=== PATIENT | male | born 1945 | race Caucasian/White ===

== ENCOUNTER 2017-12-18 00:04 | Inpatient (IN) | payer MEDICARE, BC ==
[2017-12-18] MEDS: SOD CHLORIDE 0.9% 1,000 ML IV ×2 (00:23→13:30)
[2017-12-18 00:58] LABS: ADD MAN DIFF? NO
[2017-12-18 00:59] LABS: BASOPHIL # 0.1 10^3/ul (0.0-0.1); BASOPHILS % 0.3 % (0.0-2.0); EOSINOPHILS % 0.2 % (0.0-7.0); HEMATOCRIT 45.3 % (42.0-52.0); HEMOGLOBIN 15.1 g/dl (14.0-18.0); LYMPHOCYTES # 0.7 10^3/ul (0.8-2.9); LYMPHOCYTES % 3.8 % (15.0-51.0); MEAN CORPUSCULAR HEMOGLOBIN 31.4 pg (29.0-33.0); MEAN CORPUSCULAR HGB CONC 33.3 g/dl (32.0-37.0); MEAN CORPUSCULAR VOLUME 94.2 fl (82.0-101.0); MEAN PLATELET VOLUME 9.9 fl (7.4-10.4); MONOCYTE # 0.8 10^3/ul (0.3-0.9); MONOCYTES % 4.3 % (0.0-11.0); NEUTROPHIL # 16.5 10^3/ul (1.6-7.5); NEUTROPHILS % 90.9 % (39.0-77.0); PLATELET COUNT 260 10^3/UL (140-415); RED BLOOD COUNT 4.81 10^6/ul (4.70-6.10); RED CELL DISTRIBUTION WIDTH 12.9 % (11.5-14.5)
[2017-12-18 00:59] LABS: WHITE BLOOD COUNT 18.2 10^3/ul (4.8-10.8)
[2017-12-18 01:19] LABS: INR 0.95; PROTIME 12.8 Sec (11.9-14.9)
[2017-12-18 01:20] LABS: ALANINE AMINOTRANSFERASE 43 IU/L (13-69); ALBUMIN 4.7 g/dl (3.3-4.9); ALKALINE PHOSPHATASE 88 IU/L (42-121); ANION GAP 21 (8-16); ASPARTATE AMINO TRANSFERASE 37 IU/L (15-46); BILIRUBIN,INDIRECT 0.4 mg/dl (0-1.1); BILIRUBIN,TOTAL 0.4 mg/dl (0.2-1.3); BLOOD UREA NITROGEN 35 mg/dl (7-20); CALCIUM 9.9 mg/dl (8.4-10.2); CARBON DIOXIDE 25 mmol/L (21-31); CHLORIDE 96 mmol/L (97-110); CREATININE 1.25 mg/dl (0.61-1.24); GLUCOSE 145 mg/dl (70-220); PARTIAL THROMBOPLASTIN TIME 33.2 Sec (25.0-35.0); POTASSIUM 4.7 mmol/L (3.5-5.1); SODIUM 137 mmol/L (135-144); TOTAL PROTEIN 8.3 g/dl (6.1-8.1)
[2017-12-18] MEDS: ONDANSETRON 4 MG INJ IV (01:24)
[2017-12-18] MEDS: FAMOTIDINE 20 MG INJ IV (01:24)
[2017-12-18] MEDS: LEVETIRACETAM 500 MG (PMX) 100 ML IVPB (01:24)
[2017-12-18 01:31] LABS: TROPONIN-I < 0.012 ng/ml (0.000-0.120)
[2017-12-18] MEDS: PANTOPRAZOLE 40 MG INJ IV ×3 (01:57→18:27)
[2017-12-18] MEDS ORDERED: ONDANSETRON 4 MG INJ IV (03:00)
[2017-12-18] MEDS ORDERED: ACETAMINOPHEN 325 MG TAB PO (03:00)
[2017-12-18] MEDS ORDERED: GLUCOSE GEL 15 GRAM TUBE BUCCAL (06:30)
[2017-12-18] MEDS ORDERED: POLYETHYLENE GLYCOL 17 GM PACKET PO (06:30)
[2017-12-18] MEDS ORDERED: GLUCAGON 1 MG INJ IM (06:30)
[2017-12-18] MEDS ORDERED: GLUCOSE GEL 15 GRAM TUBE PO ×2 (06:30)
[2017-12-18] MEDS ORDERED: DEXTROSE 50% 50 ML SYRINGE IV ×2 (06:30)
[2017-12-18] MEDS: CIPROFLOXACIN 200 MG/D5W IVPB 100 ML IVPB (06:37)
[2017-12-18 07:26] LABS: HEMATOCRIT 37.6 % (42.0-52.0); HEMOGLOBIN 12.7 g/dl (14.0-18.0)
[2017-12-18] MEDS: INSULIN ASPART [NOVOLOG] 3 ML PEN SC ×4 (07:54→21:00)
[2017-12-18] MEDS: metFORMIN 500 MG TAB PO (07:54)
[2017-12-18] MEDS: LACTULOSE 30ML CUP PO (08:52)
[2017-12-18] MEDS: LINAGLIPTIN 5 MG TABLET PO (08:52)
[2017-12-18] MEDS: LEVETIRACETAM 500 MG TAB PO ×2 (08:53→21:38)
[2017-12-18] MEDS: LAMOTRIGINE 100 MG TAB PO ×2 (08:53→21:38)
[2017-12-18] MEDS: DILTIAZEM (CD) 240 MG CAP PO (08:53)
[2017-12-18] MEDS: LISINOPRIL 10 MG TAB PO (08:54)
[2017-12-18] MEDS ORDERED: NON-FORMULARY/PATIENT OWN MED (Sitagliptin* (Januvia*) 100 MG) PO (09:00)
[2017-12-18 14:09] LABS: HEMATOCRIT 34.9 % (42.0-52.0); HEMOGLOBIN 11.6 g/dl (14.0-18.0)
[2017-12-19] MEDS: ACCU-CHEK XX (02:00)
[2017-12-19] MEDS: PANTOPRAZOLE 40 MG INJ IV ×2 (05:27→17:46)
[2017-12-19] MEDS: SOD CHLORIDE 0.9% 1,000 ML IV ×3 (05:30→21:18)
[2017-12-19 06:52] LABS: ADD MAN DIFF? NO
[2017-12-19 06:56] LABS: ABNORMAL IP MESSAGE 1; BASOPHIL # 0.1 10^3/ul (0.0-0.1); BASOPHILS % 0.4 % (0.0-2.0); EOSINOPHILS # 0.2 10^3/ul (0.0-0.5); EOSINOPHILS % 1.7 % (0.0-7.0); HEMATOCRIT 35.8 % (42.0-52.0); HEMOGLOBIN 12.3 g/dl (14.0-18.0); LYMPHOCYTES # 0.5 10^3/ul (0.8-2.9); LYMPHOCYTES % 4.6 % (15.0-51.0); MEAN CORPUSCULAR HEMOGLOBIN 31.5 pg (29.0-33.0); MEAN CORPUSCULAR HGB CONC 34.4 g/dl (32.0-37.0); MEAN CORPUSCULAR VOLUME 91.8 fl (82.0-101.0); MEAN PLATELET VOLUME 10.5 fl (7.4-10.4); MONOCYTE # 0.8 10^3/ul (0.3-0.9); MONOCYTES % 6.7 % (0.0-11.0); NEUTROPHIL # 9.7 10^3/ul (1.6-7.5); NEUTROPHILS % 86.2 % (39.0-77.0); PLATELET COUNT 192 10^3/UL (140-415); POSITIVE DIFF @See below; RED CELL DISTRIBUTION WIDTH 13.1 % (11.5-14.5)
[2017-12-19 06:56] LABS: WHITE BLOOD COUNT 11.2 10^3/ul (4.8-10.8)
[2017-12-19 07:22] LABS: ANION GAP 13 (8-16); BLOOD UREA NITROGEN 20 mg/dl (7-20); CALCIUM 8.7 mg/dl (8.4-10.2); CARBON DIOXIDE 24 mmol/L (21-31); CHLORIDE 102 mmol/L (97-110); CREATININE 0.95 mg/dl (0.61-1.24); GLUCOSE 103 mg/dl (70-220); POTASSIUM 4.1 mmol/L (3.5-5.1); SODIUM 135 mmol/L (135-144)
[2017-12-19] MEDS: INSULIN ASPART [NOVOLOG] 3 ML PEN SC ×4 (08:00→21:00)
[2017-12-19] MEDS: LACTULOSE 30ML CUP PO (08:43)
[2017-12-19] MEDS: DILTIAZEM (CD) 240 MG CAP PO (08:44)
[2017-12-19] MEDS: LEVETIRACETAM 500 MG TAB PO ×2 (08:44→21:19)
[2017-12-19] MEDS: LAMOTRIGINE 100 MG TAB PO ×2 (08:44→21:19)
[2017-12-19] MEDS: LISINOPRIL 10 MG TAB PO (08:45)
[2017-12-19] MEDS: LINAGLIPTIN 5 MG TABLET PO (08:45)
[2017-12-19] MEDS: metFORMIN 500 MG TAB PO (08:46)
[2017-12-19] MEDS ORDERED: ONDANSETRON 4 MG INJ IV (10:00)
[2017-12-19] MEDS: CIPROFLOXACIN 500 MG TAB PO (18:14)
[2017-12-19] MEDS: NITROFURANTOIN (SR) 100 MG CAP PO (21:19)
[2017-12-20] MEDS: ACCU-CHEK XX (02:00)
[2017-12-20] MEDS: CIPROFLOXACIN 500 MG TAB PO ×2 (05:59→18:28)
[2017-12-20] MEDS: PANTOPRAZOLE 40 MG INJ IV ×2 (05:59→18:28)
[2017-12-20 06:16] LABS: ADD MAN DIFF? NO
[2017-12-20 06:28] LABS: BASOPHILS % 0.5 % (0.0-2.0); EOSINOPHILS # 0.3 10^3/ul (0.0-0.5); EOSINOPHILS % 3.9 % (0.0-7.0); HEMATOCRIT 35.8 % (42.0-52.0); HEMOGLOBIN 12.3 g/dl (14.0-18.0); LYMPHOCYTES # 0.7 10^3/ul (0.8-2.9); LYMPHOCYTES % 7.6 % (15.0-51.0); MEAN CORPUSCULAR HEMOGLOBIN 31.6 pg (29.0-33.0); MEAN CORPUSCULAR HGB CONC 34.4 g/dl (32.0-37.0); MEAN PLATELET VOLUME 10.5 fl (7.4-10.4); MONOCYTE # 0.9 10^3/ul (0.3-0.9); MONOCYTES % 10.6 % (0.0-11.0); NEUTROPHIL # 6.6 10^3/ul (1.6-7.5); NEUTROPHILS % 76.9 % (39.0-77.0); PLATELET COUNT 189 10^3/UL (140-415); RED BLOOD COUNT 3.89 10^6/ul (4.70-6.10); RED CELL DISTRIBUTION WIDTH 12.9 % (11.5-14.5)
[2017-12-20 06:28] LABS: WHITE BLOOD COUNT 8.5 10^3/ul (4.8-10.8)
[2017-12-20 06:55] LABS: ANION GAP 14 (8-16); BLOOD UREA NITROGEN 13 mg/dl (7-20); CALCIUM 9.1 mg/dl (8.4-10.2); CARBON DIOXIDE 25 mmol/L (21-31); CHLORIDE 100 mmol/L (97-110); CREATININE 0.84 mg/dl (0.61-1.24); GLUCOSE 86 mg/dl (70-220); POTASSIUM 3.9 mmol/L (3.5-5.1); SODIUM 135 mmol/L (135-144)
[2017-12-20] MEDS: INSULIN ASPART [NOVOLOG] 3 ML PEN SC ×4 (08:00→21:00)
[2017-12-20] MEDS: DILTIAZEM (CD) 240 MG CAP PO (08:08)
[2017-12-20] MEDS: LEVETIRACETAM 500 MG TAB PO ×2 (08:08→21:14)
[2017-12-20] MEDS: metFORMIN 500 MG TAB PO (08:08)
[2017-12-20] MEDS: NITROFURANTOIN (SR) 100 MG CAP PO ×2 (08:08→21:15)
[2017-12-20] MEDS: LISINOPRIL 10 MG TAB PO (08:09)
[2017-12-20] MEDS: LACTULOSE 30ML CUP PO (08:09)
[2017-12-20] MEDS: LINAGLIPTIN 5 MG TABLET PO (08:09)
[2017-12-20] MEDS: LAMOTRIGINE 100 MG TAB PO ×2 (08:09→21:14)
[2017-12-20] MEDS: SOD CHLORIDE 0.9% 1,000 ML IV ×2 (10:09→23:55)
[2017-12-21] MEDS: ACCU-CHEK XX (01:25)
[2017-12-21] MEDS: PANTOPRAZOLE 40 MG INJ IV (05:22)
[2017-12-21] MEDS: CIPROFLOXACIN 500 MG TAB PO (05:42)
[2017-12-21 06:05] LABS: ADD MAN DIFF? NO
[2017-12-21 06:11] LABS: BASOPHILS % 0.5 % (0.0-2.0); EOSINOPHILS # 0.3 10^3/ul (0.0-0.5); EOSINOPHILS % 3.6 % (0.0-7.0); HEMATOCRIT 34.7 % (42.0-52.0); HEMOGLOBIN 12.2 g/dl (14.0-18.0); LYMPHOCYTES # 0.7 10^3/ul (0.8-2.9); LYMPHOCYTES % 7.4 % (15.0-51.0); MEAN CORPUSCULAR HEMOGLOBIN 31.5 pg (29.0-33.0); MEAN CORPUSCULAR HGB CONC 35.2 g/dl (32.0-37.0); MEAN CORPUSCULAR VOLUME 89.7 fl (82.0-101.0); MEAN PLATELET VOLUME 10.3 fl (7.4-10.4); NEUTROPHIL # 6.8 10^3/ul (1.6-7.5); NEUTROPHILS % 77.2 % (39.0-77.0); PLATELET COUNT 209 10^3/UL (140-415); RED BLOOD COUNT 3.87 10^6/ul (4.70-6.10); RED CELL DISTRIBUTION WIDTH 12.9 % (11.5-14.5)
[2017-12-21 06:11] LABS: WHITE BLOOD COUNT 8.8 10^3/ul (4.8-10.8)
[2017-12-21 06:40] LABS: ANION GAP 12 (8-16); BLOOD UREA NITROGEN 15 mg/dl (7-20); CALCIUM 8.8 mg/dl (8.4-10.2); CARBON DIOXIDE 23 mmol/L (21-31); CHLORIDE 103 mmol/L (97-110); CREATININE 0.85 mg/dl (0.61-1.24); GLUCOSE 98 mg/dl (70-220); POTASSIUM 3.9 mmol/L (3.5-5.1); SODIUM 134 mmol/L (135-144)
[2017-12-21] MEDS: PROPOFOL 20 ML (07:43)
[2017-12-21] MEDS: LIDOCAINE 2% (SDV) 5 ML INJ (07:43)
[2017-12-21] MEDS: INSULIN ASPART [NOVOLOG] 3 ML PEN SC (08:00)
[2017-12-21] MEDS: metFORMIN 500 MG TAB PO (08:03)
[2017-12-21] MEDS: LINAGLIPTIN 5 MG TABLET PO (10:17)
[2017-12-21] MEDS: LEVETIRACETAM 500 MG TAB PO (10:17)
[2017-12-21] MEDS: NITROFURANTOIN (SR) 100 MG CAP PO (10:17)
[2017-12-21] MEDS: DILTIAZEM (CD) 240 MG CAP PO (10:17)
[2017-12-21] MEDS: LACTULOSE 30ML CUP PO (10:18)
[2017-12-21] MEDS: LAMOTRIGINE 100 MG TAB PO (10:18)
[2017-12-21] MEDS: LISINOPRIL 10 MG TAB PO (10:18)
== END 2017-12-21 12:06 | disposition home or self-care (01) | DRG 378 ==
LOC: E/R 00:04 → 6WM 03:00 → PP2 16:18
PROC: 0DB68ZX Excision of Stomach, Via Natural or Artificial Opening Endoscopic, Diagnostic (ICD-10-PCS; principal; 2017-12-19 09:15)
DX: K29.01 Acute gastritis with bleeding (principal); N39.0 Urinary tract infection, site not specified; G40.909 Epilepsy, unspecified, not intractable, without status epilepticus; I12.9 Hypertensive chronic kidney disease with stage 1 through stage 4 chronic kidney disease, or unspecified chronic kidney disease; N18.2 Chronic kidney disease, stage 2 (mild); E11.22 Type 2 diabetes mellitus with diabetic chronic kidney disease; N31.9 Neuromuscular dysfunction of bladder, unspecified; J44.9 Chronic obstructive pulmonary disease, unspecified; M81.0 Age-related osteoporosis without current pathological fracture; G80.9 Cerebral palsy, unspecified; K90.0 Celiac disease; K29.80 Duodenitis without bleeding; K44.9 Diaphragmatic hernia without obstruction or gangrene; Z86.73 Personal history of transient ischemic attack (TIA), and cerebral infarction without residual deficits
CPT/HCPCS: 36415; 71045; 74018; 80048; 80053; 82962; 84484; 85014; 85018; 85025; 85610; 85730; 86850; 86900; 86901; 88305; 93005; 96374; 96375; 99285-25